=== PATIENT | male | born 1990 | race Caucasian/White ===

== ENCOUNTER 2018-09-18 00:36 | Inpatient (IN) | payer MEDICAID, OTHER ==
[~2018-09-18] VITALS: Ht 182.9 cm; Wt 71.0 kg
[2018-09-18] MEDS ORDERED: THIAMINE 100MG TABLET PO ONE (01:00)
[2018-09-18] MEDS ORDERED: DIAZEPAM 10 MG TABLET PO ONE (01:00)
[2018-09-18] MEDS ORDERED: SODIUM CHLORIDE 0.9% 1,000ML IVBOLUS ONE (01:00)
[2018-09-18] MEDS ORDERED: SODIUM CHLORIDE FLUSH 10ML SYR IVF ONE (01:00)
[2018-09-18] MEDS ORDERED: LORazepam 2 MG/ML, 1ML IVPush PRN (01:00)
[2018-09-18] MEDS ORDERED: ONDANSETRON 2MG/ML, 2ML IVPush ONE (01:00)
[2018-09-18] MEDS ORDERED: ONDANSETRON 2MG/ML, 2ML ONE ×2 (01:04→01:06)
[2018-09-18] MEDS ORDERED: DIAZEPAM 5 MG TABLET ONE (01:05)
[2018-09-18] MEDS ORDERED: THIAMINE 100MG TABLET ONE (01:05)
[2018-09-18] MEDS ORDERED: LORazepam 2 MG/ML, 1ML ONE (01:06)
--- NOTE | 2018-09-18 01:20 | NUR ---
first contact with pt. ETOH daily, last drink just before coming in. Pt's roommate with pt, who witnessed tonic clonic seizure activity x 20-25 seconds. Pt then had 2 more seizures. Pt also states he had a seizure yesterday. Pt reports having 2 seizures in the past, not prescribed any medications and has not seen a neurologist. EKG done in triage. pt's aox4. resps even and unlabored. all monitors in place. call light within reach. edmd at bedside to assess now.
--- NOTE | 2018-09-18 01:22 | NUR ---
pt medicated per emar. pt tolerated well. pt's aox4. resps even and unlabored.
--- NOTE | 2018-09-18 01:30 | NUR ---
pt to ct now.
[2018-09-18 01:34] LABS: ALANINE AMINOTRANSFERASE 36 U/L (12-78); ANION GAP 20 mmol/L (5-15); CHLORIDE 94 mmol/L (98-107); CREATININE 1.19 mg/dL (0.7-1.3)
[2018-09-18 01:37] LABS: ALKALINE PHOSPHATASE 146 U/L (45-117); BILIRUBIN,TOTAL 2.2 mg/dL (0.2-1.0); TOTAL PROTEIN 8.2 g/dL (6.4-8.2)
--- NOTE | 2018-09-18 01:39 | NUR ---
pt back to room from ct.
[2018-09-18] MEDS ORDERED: MAGNESIUM SULFATE 1 GM, THIAMINE 100 MG, FOLIC ACID 1 MG, MVI ADULT 10 ML in SODIUM CHL... IV ONE (02:00)
[2018-09-18] MEDS ORDERED: POTASSIUM CHLORIDE 20 MEQ TAB.ER.PRT PO ONE (02:00)
[2018-09-18] MEDS ORDERED: ONDANSETRON 2MG/ML, 2ML IVPush PRN (02:00)
[2018-09-18 02:03] LABS: MEAN CORPUSCULAR HEMOGLOBIN 35.2 pg (27.5-34.5); MEAN CORPUSCULAR HGB CONC 32.5 g/dL (33.2-36.2); MEAN CORPUSCULAR VOLUME 108.3 fL (81-97); MEAN PLATELET VOLUME 9.7 fL (7.4-10.4); PLATELET COUNT 100 x10^3/uL (130-400); RED BLOOD COUNT 4.53 x10^6/uL (4.38-5.82); RED CELL DISTRIBUTION WIDTH 15.8 % (9.4-14.8)
[2018-09-18] MEDS ORDERED: POTASSIUM CHLORIDE 20 MEQ TAB.ER.PRT ONE (02:10)
--- NOTE | 2018-09-18 02:15 | NUR ---
pt medicated per emar. pt tolerated well. pt's aox4. resps even and unlabored. all monitors in place. call light within reach.
[2018-09-18 02:20] LABS: INTERNATIONAL NORMALIZED RATIO 1.14 (0.93-1.1); PROTHROMBIN TIME 11.9 Seconds (9.6-11.5)
[2018-09-18] MEDS ORDERED: ONDANSETRON 2MG/ML, 2ML IV PRN (02:30)
[2018-09-18] MEDS ORDERED: LORazepam 2 MG/ML, 1ML IV PRN ×2 (02:30)
[2018-09-18 02:31] LABS: BASOPHILS # (AUTO) 0.01 x10^3/uL (0-0.1); BASOPHILS % (AUTO) 0 % (0-1); EOSINOPHILS % (AUTO) 0 % (1-7); LYMPHOCYTES # (AUTO) 0.71 x10^3/uL (1-3.4); LYMPHOCYTES % (AUTO) 6 % (22-44); MD SCAN; MONOCYTES # (AUTO) 0.43 x10^3/uL (0.2-0.8); MONOCYTES % (AUTO) 4 % (2-9); NEUTROPHILS # (AUTO) 10.45 x10^3/uL (1.8-6.8); NEUTROPHILS % (AUTO) 90 % (42-75)
--- NOTE | 2018-09-18 02:32 | NUR ---
report given to mickey riggins. all questions answered.
[2018-09-18] MEDS: LORazepam 2 MG/ML, 1ML IV PRN ×3 (03:04→12:58)
[2018-09-18 03:47] VITALS: BP 126/90
[2018-09-18 04:09] VITALS: BP 126/90
[2018-09-18 05:04] VITALS: BP 127/77
[2018-09-18] MEDS ORDERED: NS + 20MEQ KCL 1,000 ML IV SCH (05:30)
[2018-09-18 06:50] LABS: ALBUMIN 3.3 g/dL (3.4-5.0); BILIRUBIN, DIRECT 1.2 mg/dL (0.1-0.2)
[2018-09-18 07:04] LABS: BILIRUBIN,INDIRECT 1.2 mg/dL (0.0-2.0); BILIRUBIN,TOTAL 2.4 mg/dL (0.2-1.0); TOTAL PROTEIN 6.7 g/dL (6.4-8.2)
[2018-09-18 07:59] VITALS: BP 131/81
[2018-09-18] MEDS ORDERED: ACETAMINOPHEN 325 MG TABLET PO PRN (09:00)
[2018-09-18] MEDS ORDERED: MAGNESIUM SULFATE PMX 2GM/50ML 50 ML IVPB ONE (09:00)
[2018-09-18] MEDS ORDERED: MAGNESIUM SULFATE 1 GM/2 ML IVPush SCH (09:00)
[2018-09-18] MEDS: MULTIVITAMINS/MINERALS TABLET PO SCH (09:00)
[2018-09-18] MEDS: NS + 40MEQ KCL 1,000 ML IV SCH ×2 (09:34→18:35)
[2018-09-18] MEDS: PIPERACILLIN/TAZO/PMX 3.375GM 50 ML IV SCH ×3 (09:34→20:54)
[2018-09-18] MEDS ORDERED: OMNIPAQUE 350 MG/ML, 100ML BOTTLE ONE (10:19)
[2018-09-18 11:01] LABS: FOLATE LEVEL > 20.0 ng/mL (3.1-17.5)
[2018-09-18 11:33] LABS: MICROSCOPIC INDICATED
[2018-09-18 11:34] LABS: CULTURE INDICATED? YES
[2018-09-18 12:24] LABS: AMPHETAMINE SCREEN, URINE Negative (Negative); BARBITURATE SCREEN, URINE Negative (Negative); BENZODIAZEPINE SCREEN, URINE Positive (Negative); CANNABINOID SCREEN, URINE Negative (Negative); COCAINE SCREEN, URINE Negative (Negative); METHADONE SCREEN, URINE Negative (Negative); OPIATE SCREEN, URINE Negative (Negative)
[2018-09-18 13:14] VITALS: BP 153/97
[2018-09-18 20:33] VITALS: BP 143/94
[2018-09-19] MEDS: LORazepam 2 MG/ML, 1ML IV PRN ×5 (00:38→11:01)
[2018-09-19 02:07] VITALS: BP 149/96
[2018-09-19] MEDS: NS + 40MEQ KCL 1,000 ML IV SCH ×2 (02:45→18:14)
[2018-09-19] MEDS: PIPERACILLIN/TAZO/PMX 3.375GM 50 ML IV SCH ×4 (03:04→21:36)
[2018-09-19 05:46] LABS: MEAN CORPUSCULAR HEMOGLOBIN 36.6 pg (27.5-34.5); MEAN CORPUSCULAR HGB CONC 34.5 g/dL (33.2-36.2); MEAN CORPUSCULAR VOLUME 106.3 fL (81-97); RED BLOOD COUNT 3.74 x10^6/uL (4.38-5.82); RED CELL DISTRIBUTION WIDTH 15.1 % (9.4-14.8)
[2018-09-19 05:57] LABS: CHLORIDE 101 mmol/L (98-107)
[2018-09-19 06:13] LABS: ALANINE AMINOTRANSFERASE 37 U/L (12-78); ALBUMIN 3.3 g/dL (3.4-5.0); ALKALINE PHOSPHATASE 117 U/L (45-117); ANION GAP 12 mmol/L (5-15); BILIRUBIN,TOTAL 2.9 mg/dL (0.2-1.0); CALCIUM 8.3 mg/dL (8.5-10.1); CREATININE 0.72 mg/dL (0.7-1.3); TOTAL PROTEIN 7.1 g/dL (6.4-8.2)
[2018-09-19 06:18] LABS: MEAN PLATELET VOLUME 9.9 fL (7.4-10.4); PLATELET COUNT 85 x10^3/uL (130-400)
[2018-09-19 06:20] LABS: MD YES
[2018-09-19 06:23] LABS: BAND#(MANUAL) 0.53 x10^3/uL; BANDS%(MANUAL) 7 % (0-7); BASOS#(MANUAL) 0.23 x10^3/uL (0-0.1); BASOS% (MANUAL) 3 % (0-1); EOS#(MANUAL) 0.08 x10^3/uL (0.0-0.4); EOS% (MANUAL) 1 % (1-7); LYMPH#(MANUAL) 2.13 x10^3/uL (1-3.4); LYMPHS% (MANUAL) 28 % (22-44); MONOS% (MANUAL) 4 % (2-9); SEG#(MANUAL) 4.33 x10^3/uL (1.8-6.8); SEGS% (MANUAL) 57 % (42-75)
[2018-09-19 06:24] LABS: POLYCHROMASIA 1+
[2018-09-19 06:25] LABS: TOXIC GRAN 1+
[2018-09-19 06:26] LABS: <PLATELET ESTIMATE> DECREASED; <PLT MORPHOLOGY> NORMAL PLT MORPH
[2018-09-19 07:25] VITALS: BP 153/101
[2018-09-19] MEDS ORDERED: POTASSIUM CHLORIDE 20 MEQ TAB.ER.PRT PO ONE (07:30)
[2018-09-19] MEDS ORDERED: CHLORDIAZEPOXIDE 10 MG CAPSULE PO PRN (07:30)
[2018-09-19] MEDS: MULTIVITAMINS/MINERALS TABLET PO SCH (09:00)
[2018-09-19 10:45] VITALS: BP 155/106
[2018-09-19] MEDS ORDERED: CHLORDIAZEPOXIDE 10 MG CAPSULE PO SCH (11:00)
[2018-09-19] MEDS: THIAMINE 100 MG in DEXTROSE 5% 50 ML IVPB SCH (11:22)
[2018-09-19] MEDS ORDERED: HALOPERIDOL 5 MG/ML IM PRN (13:00)
[2018-09-19] MEDS ORDERED: PHENOBARBITAL ETOH DETOX PER PHARMACY MC PRN (14:00)
[2018-09-19 14:11] VITALS: BP 134/91
[2018-09-19] MEDS ORDERED: PHENOBARBITAL SODIUM IV ONE ×2 (16:00→20:30)
[2018-09-19] MEDS ORDERED: SODIUM CHLORIDE 0.9% IV ONE ×2 (16:00→20:30)
[2018-09-19] MEDS ORDERED: HALOPERIDOL 5 MG/ML IV PRN (19:00)
[2018-09-19] MEDS: DEXMEDETOMIDINE 200 MCG in SODIUM CHLORIDE 0.9% 48 ML IV PRN (22:54)
[2018-09-20] MEDS: DEXMEDETOMIDINE 200 MCG in SODIUM CHLORIDE 0.9% 48 ML IV PRN (03:02)
[2018-09-20] MEDS: NS + 40MEQ KCL 1,000 ML IV SCH (03:02)
[2018-09-20] MEDS: PIPERACILLIN/TAZO/PMX 3.375GM 50 ML IV SCH (03:04)
[2018-09-20 04:00] VITALS: BP 144/106
[2018-09-20 05:01] LABS: ALBUMIN 2.9 g/dL (3.4-5.0); ANION GAP 9 mmol/L (5-15); CALCIUM 8.5 mg/dL (8.5-10.1); CHLORIDE 108 mmol/L (98-107)
[2018-09-20 05:06] LABS: ALANINE AMINOTRANSFERASE 38 U/L (12-78); ALKALINE PHOSPHATASE 112 U/L (45-117); BILIRUBIN,TOTAL 1.5 mg/dL (0.2-1.0); CHOL/HDL RATIO 5.3; CHOLESTEROL, TOTAL 202 mg/dL (140-239); CREATININE 0.64 mg/dL (0.7-1.3); HDL CHOL % 19 % (26-37); HDL CHOLESTEROL (DIRECT) 38 mg/dL (40-60); LDL CHOLESTEROL,CALCULATED 130 mg/dL (54-169); LDL/HDL RATIO 3.4 (0.5-3.0); TOTAL PROTEIN 6.6 g/dL (6.4-8.2); TRIGLYCERIDES 169 mg/dL (50-200); VLDL CHOLESTEROL 34 mg/dL (0-25)
[2018-09-20 05:15] LABS: MEAN CORPUSCULAR HEMOGLOBIN 36.8 pg (27.5-34.5); MEAN CORPUSCULAR HGB CONC 34.2 g/dL (33.2-36.2); MEAN CORPUSCULAR VOLUME 107.8 fL (81-97); MEAN PLATELET VOLUME 9.4 fL (7.4-10.4); PLATELET COUNT 117 x10^3/uL (130-400); RED BLOOD COUNT 3.82 x10^6/uL (4.38-5.82); RED CELL DISTRIBUTION WIDTH 14.7 % (9.4-14.8)
[2018-09-20] MEDS: PHENOBARBITAL SODIUM 65 MG/ML, 1ML IM SCH ×2 (05:31→16:35)
[2018-09-20 06:13] LABS: BASOPHILS # (AUTO) 0.09 x10^3/uL (0-0.1); BASOPHILS % (AUTO) 1 % (0-1); EOSINOPHILS # (AUTO) 0.16 x10^3/uL (0-0.4); EOSINOPHILS % (AUTO) 3 % (1-7); LYMPHOCYTES # (AUTO) 1.48 x10^3/uL (1-3.4); LYMPHOCYTES % (AUTO) 24 % (22-44); MD NO; MONOCYTES # (AUTO) 0.59 x10^3/uL (0.2-0.8); MONOCYTES % (AUTO) 9 % (2-9); NEUTROPHILS # (AUTO) 3.93 x10^3/uL (1.8-6.8); NEUTROPHILS % (AUTO) 63 % (42-75)
[2018-09-20] MEDS ORDERED: MAGNESIUM SULFATE PMX 2GM/50ML 50 ML IV ONE (07:00)
[2018-09-20] MEDS: MULTIVITAMINS/MINERALS TABLET PO SCH (08:24)
[2018-09-20] MEDS: hydrALAzine 20 MG/ML, 1ML IV PRN (08:24)
[2018-09-20] MEDS: AMPICILLIN/SULBACTAM 3 GM in SODIUM CHLORIDE 0.9% 100 ML IV SCH ×3 (08:24→21:58)
[2018-09-20] MEDS: D5%-0.9% NACL+KCL 20MEQ 1,000 ML IV SCH ×2 (10:13→21:58)
[2018-09-20] MEDS: THIAMINE 100 MG in DEXTROSE 5% 50 ML IVPB SCH (10:13)
[2018-09-21] MEDS: hydrALAzine 20 MG/ML, 1ML IV PRN (01:00)
[2018-09-21] MEDS: AMPICILLIN/SULBACTAM 3 GM in SODIUM CHLORIDE 0.9% 100 ML IV SCH ×4 (01:52→19:46)
[2018-09-21 04:00] VITALS: BP 131/60
[2018-09-21 04:57] LABS: ANION GAP 8 mmol/L (5-15); CALCIUM 8.9 mg/dL (8.5-10.1); CHLORIDE 107 mmol/L (98-107)
[2018-09-21] MEDS: PHENOBARBITAL SODIUM 65 MG/ML, 1ML IM SCH ×2 (04:58→18:17)
[2018-09-21 04:59] LABS: CREATININE 0.64 mg/dL (0.7-1.3)
[2018-09-21] MEDS: D5%-0.9% NACL+KCL 20MEQ 1,000 ML IV SCH (06:55)
[2018-09-21] MEDS ORDERED: MAGNESIUM SULFATE PMX 4GM/100M 100 ML IVPB ONE (07:00)
[2018-09-21] MEDS ORDERED: SODIUM PHOSPHATE 20 MMOL in SODIUM CHLORIDE 0.9% 500 ML IV ONE ×2 (07:00→16:00)
[2018-09-21] MEDS: MULTIVITAMINS/MINERALS TABLET PO SCH (08:01)
[2018-09-21] MEDS: THIAMINE 100 MG in DEXTROSE 5% 50 ML IVPB SCH (09:06)
[2018-09-21 20:36] VITALS: BP 149/108
[2018-09-21 21:51] VITALS: BP 144/94
[2018-09-22] MEDS: AMPICILLIN/SULBACTAM 3 GM in SODIUM CHLORIDE 0.9% 100 ML IV SCH ×4 (02:08→19:56)
[2018-09-22 02:25] VITALS: BP 140/90
[2018-09-22] MEDS: PHENOBARBITAL 20 MG/5 ML ORAL SOL PO SCH ×2 (05:26→18:16)
[2018-09-22] MEDS: MULTIVITAMINS/MINERALS TABLET PO SCH (07:55)
[2018-09-22 08:35] VITALS: BP 145/90
[2018-09-22 09:57] LABS: ANION GAP 9 mmol/L (5-15); CALCIUM 8.7 mg/dL (8.5-10.1); CHLORIDE 107 mmol/L (98-107); CREATININE 0.66 mg/dL (0.7-1.3)
[2018-09-22 13:15] VITALS: BP 142/98
[2018-09-22] MEDS ORDERED: OMNIPAQUE 350 MG/ML, 100ML BOTTLE ONE (13:53)
[2018-09-22 20:03] VITALS: BP 140/90
[2018-09-23] MEDS: AMPICILLIN/SULBACTAM 3 GM in SODIUM CHLORIDE 0.9% 100 ML IV SCH ×2 (01:51→08:20)
[2018-09-23 02:08] VITALS: BP 146/85
[2018-09-23] MEDS: PHENOBARBITAL 20 MG/5 ML ORAL SOL PO SCH (05:04)
[2018-09-23 07:43] LABS: BASOPHILS # (AUTO) 0.09 x10^3/uL (0-0.1); BASOPHILS % (AUTO) 2 % (0-1); EOSINOPHILS # (AUTO) 0.14 x10^3/uL (0-0.4); EOSINOPHILS % (AUTO) 3 % (1-7); LYMPHOCYTES # (AUTO) 1.39 x10^3/uL (1-3.4); LYMPHOCYTES % (AUTO) 27 % (22-44); MD NO; MEAN CORPUSCULAR HGB CONC 33.5 g/dL (33.2-36.2); MEAN CORPUSCULAR VOLUME 107.5 fL (81-97); MEAN PLATELET VOLUME 8.9 fL (7.4-10.4); MONOCYTES # (AUTO) 0.85 x10^3/uL (0.2-0.8); MONOCYTES % (AUTO) 17 % (2-9); NEUTROPHILS % (AUTO) 52 % (42-75); PLATELET COUNT 315 x10^3/uL (130-400); RED BLOOD COUNT 4.01 x10^6/uL (4.38-5.82); RED CELL DISTRIBUTION WIDTH 15.1 % (9.4-14.8)
[2018-09-23 07:50] LABS: ANION GAP 7 mmol/L (5-15); CALCIUM 9.4 mg/dL (8.5-10.1); CHLORIDE 105 mmol/L (98-107); CREATININE 0.71 mg/dL (0.7-1.3)
[2018-09-23 07:51] LABS: ALANINE AMINOTRANSFERASE 56 U/L (12-78); ALBUMIN 3.5 g/dL (3.4-5.0)
[2018-09-23 07:52] LABS: ALKALINE PHOSPHATASE 123 U/L (45-117); BILIRUBIN,TOTAL 0.9 mg/dL (0.2-1.0); TOTAL PROTEIN 7.3 g/dL (6.4-8.2)
[2018-09-23] MEDS: MULTIVITAMINS/MINERALS TABLET PO SCH (08:02)
[2018-09-23 08:15] VITALS: BP 103/84
[2018-09-23] MEDS ORDERED: THIAMINE 100MG TABLET PO SCH (09:00)
[2018-09-24] MEDS ORDERED: PHENOBARBITAL 20 MG/5 ML ORAL SOL PO SCH (05:00)
[2018-09-25] MEDS ORDERED: PHENOBARBITAL 20 MG/5 ML ORAL SOL PO SCH (05:00)
== END 2018-09-23 15:26 | disposition left against medical advice (07) | DRG 177 ==
LOC: ED 01:58 → 5SO 02:27 → 4EST 02:48 → CCU 09-19 15:24 → 4EST 09-21 21:17
PROVIDERS: ADMIT Emergency Medicine; ATTEND Emergency Medicine
DX: J69.0 Pneumonitis due to inhalation of food and vomit (principal); K85.90 Acute pancreatitis without necrosis or infection, unspecified; G93.41 Metabolic encephalopathy; F10.231 Alcohol dependence with withdrawal delirium; R56.9 Unspecified convulsions; K76.0 Fatty (change of) liver, not elsewhere classified; Y90.1 Blood alcohol level of 20-39 mg/100 ml; E16.2 Hypoglycemia, unspecified; D69.59 Other secondary thrombocytopenia; F17.210 Nicotine dependence, cigarettes, uncomplicated; K70.9 Alcoholic liver disease, unspecified; E87.6 Hypokalemia; E86.0 Dehydration; Z82.49 Family history of ischemic heart disease and other diseases of the circulatory system; Z82.0 Family history of epilepsy and other diseases of the nervous system; Z53.21 Procedure and treatment not carried out due to patient leaving prior to being seen by health care provider
CPT/HCPCS: 36415; 70450; 71045; 74160; 74178; 76700; 80048; 80053; 80061; 80076; 80307; 81001; 82140; 82550; 82607; 82746; 83605; 83690; 83735; 84100; 84132; 85025; 85610; 86803; 87040; 87081; 87086; 87340; 87806; 93005; 96374; G0378; J0295; J2405; J2543; J2560; J3411; J3475; Q9967; G0475; J0360; J1630; J2060; J3480; J7030; J7040